=== PATIENT | male | born 1945 | race Caucasian/White ===

== ENCOUNTER 2021-03-17 08:28 | Day surgery (SDC) | payer MEDICARE, OTHER ==
[2021-03-17] MEDS ORDERED: Propofol 200 MG/20 ML SDV IV ONE (08:29)
[2021-03-17] MEDS ORDERED: Sodium Chloride 0.9% 1,000 ML IV SCH (08:45)
[2021-03-17] MEDS ORDERED: Sodium Chloride 0.9% 10 ML Syringe FLUSH PRN (08:45)
--- NOTE | 2021-03-17 09:42 | PCM.PN ---
- General Info Date of Service: 03/17/21 - Review of Systems Systems Review Comment:: 75 y/o male here for screening colonoscopy. He is medically stable to proceed. His recent history and physical is reviewed and no significant changes are noted. He does state that he has intermittent diarrhea. I have discussed the proposed colonoscopy with the patient. Risks such as but not limited to bleeding and GI injury reviewed. He agrees to proceed. - Patient Data Vitals - Most Recent: Last Vital Signs Temp 97.5 F 03/17/21 09:00 Pulse 77 03/17/21 09:00 Resp 18 03/17/21 09:00 BP 152/69 H 03/17/21 09:00 Pulse Ox 99 03/17/21 09:00 Weight - Most Recent: 121.109 kg Med Orders - Current: Current Medications Sodium Chloride (Normal Saline) 1,000 mls @ 50 mls/hr IV ASDIRECTED WIN Sodium Chloride (Sodium Chloride 0.9% 10 Ml Syringe) 10 ml FLUSH Q8HR PRN PRN Reason: keep vein open Sepsis Event Note - Focused Exam Vital Signs: Vital Signs Temp Pulse Resp BP Pulse Ox 03/17/21 09:00 97.5 F 77 18 152/69 H 99 - Problem List Review Problem List Initiated/Reviewed/Updated: Yes - My Orders Last 24 Hours: My Active Orders 03/16/21 16:04 Resuscitation Status Routine 03/17/21 Breakfast Nothing Per Oral Diet [DIET] 03/17/21 08:45 Blood Glucose Check, Bedside [RC] UPON Peripheral IV Care [RC] . DIRECTED Sodium Chloride 0.9% [Normal Saline] 1,000 ml IV ASDIRECTED Sodium Chloride 0.9% [Saline Flush] 10 ml FLUSH Q8HR PRN Peripheral IV Insertion Adult [OM.PC] Routine 03/17/21 09:00 Patient to Empty Bladder [RC] ASDIRECTED 03/17/21 09:45 Verify Patient Consent Obtain [RC] ASDIRECTED - Assessment Assessment:: Colon cancer screening - Plan Plan:: Colonoscopy
[2021-03-17] MEDS ORDERED: Midazolam 1 MG/ML 2 ML SDV ONE (09:49)
[2021-03-17] MEDS ORDERED: Propofol 200 MG/20 ML SDV ONE ×2 (09:49→10:26)
--- NOTE | 2021-03-17 10:52 | PCM.OPNOTE ---
- General Post-Op/Procedure Note Date of Surgery/Procedure: 03/17/21 Operative Procedure(s): Colonoscopy with Polypectomy Findings: Multiple colon polyps Pre Op Diagnosis: Colon cancer screening Post-Op Diagnosis: Colon polyps Anesthesia Technique: MAC Primary Surgeon: Mehul Beverly Pathology: Colon Polyps EBL in mLs: 0 Complications: None Condition: Good
[2021-03-17 14:56] VITALS: BP 131/58; PULSE 68
--- NOTE | 2021-03-17 15:29 | OR ---
DATE OF SURGERY: 03/17/2021 SURGEON: Mehul Beverly MD PREOPERATIVE DIAGNOSIS: Colon cancer screening. POSTOPERATIVE DIAGNOSIS: Colon polyps. OPERATION PERFORMED: Colonoscopy with polypectomy. INDICATIONS FOR SURGERY: This 75-year-old male is referred for screening colonoscopy. His last colon exam was approximately 10 years ago. FINDINGS: Multiple polyps are noted on today's exam. There is a 6 mm sessile polyp in the rectum 4 cm from the anal verge. There is also a cluster of 7 polyps in the ascending colon and cecum. These range in size from 5 to 10 mm and they are all sessile in configuration and soft. The remainder of the colon appears normal. DESCRIPTION OF PROCEDURE: The patient was taken to the operating room. He was given intravenous sedation and with him in the left lateral decubitus position, digital rectal exam was performed showing no rectal masses. The Olympus colonoscope was inserted into the rectum. Retroflexed examination of the rectal canal is performed. In the rectum, the above-described rectal polyp was identified. This was removed with a cautery snare and retrieved into a polyp trap. The scope was then carefully advanced under direct visualization through the entire length of the colon until the ascending colon and cecum were reached. In this area, a cluster of multiple polyps was identified. These are all removed with a cautery snare and retrieved into a polyp trap. They were in relatively close proximity in this region and so they were all submitted as a single specimen. The cecum is able to be cannulated and carefully examined. The ileocecal valve and appendiceal orifice are examined, and this area otherwise appears normal. The scope was then slowly withdrawn sequentially re- examining the colonic segments. One additional very small polyp in the mid transverse colon is destroyed with cautery. The examination is completed and with no sign of any bleeding or other complication, the scope was removed, and the patient was taken from the operating room in satisfactory condition. ESTIMATED BLOOD LOSS: Zero. COMPLICATIONS: None. PROGNOSIS: Good. /[id number]/MODL
== END 2021-03-17 12:30 | disposition home or self-care (01) ==
LOC: KA.SDS 08:28
PROVIDERS: ATTEND Surgery
DX: Z12.11 Encounter for screening for malignant neoplasm of colon (principal); D12.8 Benign neoplasm of rectum; D12.0 Benign neoplasm of cecum; I25.10 Atherosclerotic heart disease of native coronary artery without angina pectoris; I10 Essential (primary) hypertension; E78.5 Hyperlipidemia, unspecified; E11.9 Type 2 diabetes mellitus without complications; Z88.0 Allergy status to penicillin; Z88.8 Allergy status to other drugs, medicaments and biological substances; Z79.899 Other long term (current) drug therapy; Z79.82 Long term (current) use of aspirin; Z90.49 Acquired absence of other specified parts of digestive tract; Z98.890 Other specified postprocedural states; Z87.891 Personal history of nicotine dependence; Z79.4 Long term (current) use of insulin
CPT/HCPCS: 00812; 45385; J2250; J2704; 88305

== ENCOUNTER 2021-09-22 21:01 | Emergency (ER) | payer MEDICARE, OTHER, MEDICAID ==
[2021-09-22] MEDS ORDERED: Sodium Chloride 0.9% 10 ML Syringe FLUSH PRN (21:07)
--- NOTE | 2021-09-22 21:09 | EDM.PDOC ---
ED HPI GENERAL MEDICAL PROBLEM - General Chief Complaint: Chest Pain Stated Complaint: chest discomfort Time Seen by Provider: 09/22/21 21:06 Source of Information: Reports: Patient, Family History Limitations: Reports: No Limitations - History of Present Illness INITIAL COMMENTS - FREE TEXT/NARRATIVE: Avery, 75-year-old male, presents emergency department with his after experiencing some vague chest pressure symptoms at home. He states for the past 2 weeks he is noted increasing edema despite him using his medications which he then found out were likely as they were issued in 2019 prescription. He then presented to the [facility] at which time lab work and a short-term prescription was provided for oral furosemide and his mail order prescription was ordered which he received today. Tonight he speaks of edema not improving as he had hoped for and presented for evaluation. He denies any fever chills. He is not COVID-19 vaccinated. Maurice Denies shortness of breath or chest pain, states he had a sensation in his chest but it improved/resolved once they got in the car with no intervention and has not returned being completely resolved prior to his evaluation. He states he has had worsening edema as previously mentioned for the past 10 to 14 days. He had some diarrhea 3 days ago that he feels was always controlled but did linger with a loose stool this morning. Onset: Today, Gradual Duration: Day(s):, Week(s):, Resolved Prior to Arrival Location: Reports: Chest, Lower Extremity, Left, Lower Extremity, Right Bilateral Leg Pain Score (Numeric/FACES): 4 - Related Data Allergies Allergy/AdvReac Type Severity Reaction Status Date / Time Penicillins Allergy Hives Verified 03/02/21 13:57 rosuvastatin [From Crestor] Allergy Muscle Verified 03/02/21 13:57 Aches Home Meds: Home Meds Finasteride 5 mg PO BEDTIME 05/21/16 [History] Lisinopril 40 mg PO BEDTIME 05/21/16 [History] Terazosin HCl [Terazosin] 5 mg PO QAM 05/21/16 [History] metFORMIN HCl [Metformin HCl] 1,000 mg PO BIDMEALS 05/21/16 [History] Nitroglycerin [Nitrolingual Sun] 1 spray SL TID PRN 30 Days canister 05/22/16 [Rx] Aspirin [Adult Aspirin Regimen] 81 mg PO DAILY 03/02/21 [History] Diclofenac Sodium [Voltaren 1% Gel] 1 applic TOP BID PRN 03/02/21 [History] Furosemide 20 mg PO DAILY 03/02/21 [History] Insulin NPH Hum/Reg Insulin Hm [Novolin 70-30 Flexpen] 20 unit SQ BID 03/02/21 [History] Terazosin [Hytrin] 2 mg PO BEDTIME 03/02/21 [History] tiZANidine [Zanaflex] 4 mg PO BID 03/02/21 [History] Past Medical History HEENT History: Reports: Impaired Vision Cardiovascular History: Reports: CAD, High Cholesterol, Hypertension, SOB on Exertion Respiratory History: Reports: Sleep Apnea, Other (See Below) Other Respiratory History: CPAP at night Gastrointestinal History: Reports: Colon Polyp, Hemorrhoids Genitourinary History: Reports: BPH, Prostate Disorder Musculoskeletal History: Reports: Arthritis, Back Pain, Chronic, Osteoarthritis Neurological History: Reports: Neuropathy, Diabetic, Other (See Below) Other Neuro History: sciatica Psychiatric History: Reports: Depression Endocrine/Metabolic History: Reports: Diabetes, Type II, Obesity/BMI 30+ Oncologic (Cancer) History: Reports: Prostate Dermatologic History: Reports: Other (See Below) Other Dermatologic History: Purple discoloration to bilat legs. - Infectious Disease History Infectious Disease History: Reports: Chicken Pox, Measles, Mumps, Shingles - Past Surgical History HEENT Surgical History: Reports: Cataract Surgery Cardiovascular Surgical History: Reports: Coronary Artery Stent Respiratory Surgical History: Reports: Lung Biopsies GI Surgical History: Reports: Appendectomy, Cholecystectomy, Colonoscopy Male Surgical History: Reports: Prostate Biopsy Endocrine Surgical History: Reports: None Neurological Surgical History: Reports: None Musculoskeletal Surgical History: Reports: None Oncologic Surgical History: Reports: None Dermatological Surgical History: Reports: None Social & Family History - Family History Family Medical History: No Pertinent Family History Cardiac: Reports: Heart Failure Endocrine/Metabolic: Reports: Diabetes, Type I Oncologic: Reports: None - Caffeine Use Caffeine Use: Reports: Coffee ED ROS GENERAL - Review of Systems Review Of Systems: Comprehensive ROS is negative, except as noted in HPI. ED EXAM, GENERAL - Physical Exam Exam: See Below Free Text/Narrative:: Alert oriented in no acute distress. There is no cyanosis nor pallor. He is somewhat unkempt in his presentation with full facial hair present. Carmi moist mucous membranes. Neck is soft supple no JVD no carotid bruit and no rigidity noted. Thorax is clear mildly diminished bases with no wheezes or crackles noted. Cardiac is S1-S2 I do appreciate a soft grade 1 murmur best heard at the base. Abdomen is rotund soft bowel sounds are present no tenderness to palpation, no flank pain to percussion. He has significant +2 edema to the lower extremities with a ruborous presentation denying any pain. #1 Interpretation EKG Date: 09/22/21 Time: 21:04 Rhythm: NSR Rate (Beats/Min): 74 [place]: Normal P-Wave: Present QRS: RBBB ST-T: Normal QT: Normal Comparison: NA - No Prior EKG Course - Vital Signs Last Recorded V/S: Last Vital Signs Temp 97.1 F 09/22/21 21:05 Pulse 72 09/22/21 21:21 Resp 20 09/22/21 21:21 BP 170/67 H 09/22/21 21:21 Pulse Ox 94 L 09/22/21 21:21 - Orders/Labs/Meds Orders: Active Orders 24 hr Category Date Time Status Peripheral IV Care [RC] . DIRECTED Care 09/22/21 21:07 Active Chest 1V Frontal [CR] Stat Exams 09/22/21 21:06 Ordered Sodium Chloride 0.9% [Saline Flush] Med 09/22/21 21:07 Active 10 ml FLUSH Q8HR PRN Peripheral IV Insertion Adult [OM.PC] Stat Oth 09/22/21 21:07 Ordered EKG 12 Lead [EK] Stat Ther 09/22/21 21:06 Ordered Medication Orders Sodium Chloride (Sodium Chloride 0.9% 10 Ml Syringe) 10 ml FLUSH Q8HR PRN PRN Reason: keep vein open Last Admin: 09/22/21 22:26 Dose: 10 ml Documented by: KARLI Labs: Laboratory Tests 09/22/21 09/22/21 09/22/21 Range/Units 21:15 21:15 21:15 WBC 5.33 (5.00-10.00) 10^3/uL RBC 3.58 L (4.50-6.00) 10^6/uL Hgb 11.2 L (13.0-17.0) g/dL Hct 34.8 L (40.0-52.0) % MCV 97.2 H D (82.0-92.0) fL MCH 31.3 H (27.0-31.0) pg MCHC 32.2 (32.0-36.0) g/dL RDW 13.6 (11.5-14.5) % Plt Count 137 L (150-400) 10^3/uL MPV 10.5 H (7.4-10.4) fL Immature Gran % (Auto) 0.0 (0.0-5.0) % Neut % (Auto) 66.0 (50.0-70.0) % Lymph % (Auto) 22.5 (20.0-40.0) % [place] % (Auto) 9.6 H (2.0-8.0) % Eos % (Auto) 1.7 (1.0-3.0) % Baso % (Auto) 0.2 (0.0-1.0) % Neut # (Auto) 3.52 (2.50-7.00) 10^3/uL Lymph # (Auto) 1.20 (1.00-4.00) 10^3/uL [place] # (Auto) 0.51 (0.10-0.80) 10^3/uL Eos # (Auto) 0.09 L (0.10-0.30) 10^3/uL Baso # (Auto) 0.01 (0.00-0.10) 10^3/uL Immature Gran # (Auto) 0.00 (0.00-0.50) 10^3/uL D-Dimer, Quantitative 1160 H (<400) ng/mL Sodium 145 (136-145) mmol/L Potassium 4.2 (3.5-5.1) mmol/L Chloride 105 (98-107) mmol/L Carbon Dioxide 31.4 (21.0-32.0) mmol/L Anion Gap 12.8 (5-15) mmol/L BUN 26 H (7-18) mg/dL Creatinine 1.25 H (0.51-1.17) mg/dL Est Cr Clr Drug Dosing 52.69 mL/min Estimated GFR (MDRD) 56 mL/min Glucose 189 H (70-140) mg/dL Calcium 9.4 (8.7-10.3) mg/dL Total Bilirubin 0.3 (0.2-1.0) mg/dL AST 13 L (15-37) U/L ALT 51 (14-63) U/L Alkaline Phosphatase 99 (46-116) U/L Troponin I High Sens 10.800 (0-76.000) pg/mL C-Reactive Protein < 0.4 (0.0-0.9) mg/dL B-Natriuretic Peptide 204 H (0-100) pg/mL Total Protein 7.2 (6.4-8.2) g/dL Albumin 3.53 (3.40-5.00) g/dL SARS-CoV-2 RNA (BREEZY) (NEGATIVE) 09/22/21 Range/Units 21:15 WBC (5.00-10.00) 10^3/uL RBC (4.50-6.00) 10^6/uL Hgb (13.0-17.0) g/dL Hct (40.0-52.0) % MCV (82.0-92.0) fL MCH (27.0-31.0) pg MCHC (32.0-36.0) g/dL RDW (11.5-14.5) % Plt Count (150-400) 10^3/uL MPV (7.4-10.4) fL Immature Gran % (Auto) (0.0-5.0) % Neut % (Auto) (50.0-70.0) % Lymph % (Auto) (20.0-40.0) % [place] % (Auto) (2.0-8.0) % Eos % (Auto) (1.0-3.0) % Baso % (Auto) (0.0-1.0) % Neut # (Auto) (2.50-7.00) 10^3/uL Lymph # (Auto) (1.00-4.00) 10^3/uL [place] # (Auto) (0.10-0.80) 10^3/uL Eos # (Auto) (0.10-0.30) 10^3/uL Baso # (Auto) (0.00-0.10) 10^3/uL Immature Gran # (Auto) (0.00-0.50) 10^3/uL D-Dimer, Quantitative (<400) ng/mL Sodium (136-145) mmol/L Potassium (3.5-5.1) mmol/L Chloride (98-107) mmol/L Carbon Dioxide (21.0-32.0) mmol/L Anion Gap (5-15) mmol/L BUN (7-18) mg/dL Creatinine (0.51-1.17) mg/dL Est Cr Clr Drug Dosing mL/min Estimated GFR (MDRD) mL/min Glucose (70-140) mg/dL Calcium (8.7-10.3) mg/dL Total Bilirubin (0.2-1.0) mg/dL AST (15-37) U/L ALT (14-63) U/L Alkaline Phosphatase (46-116) U/L Troponin I High Sens (0-76.000) pg/mL C-Reactive Protein (0.0-0.9) mg/dL B-Natriuretic Peptide (0-100) pg/mL Total Protein (6.4-8.2) g/dL Albumin (3.40-5.00) g/dL SARS-CoV-2 RNA (BREEZY) Negative (NEGATIVE) Meds: Medications Generic Name Dose Route Start Last Admin Trade Name Freq PRN Reason Stop Dose Admin Sodium Chloride 10 ml 09/22/21 21:07 09/22/21 22:26 Sodium Chloride 0.9% 10 Ml Syringe FLUSH 10 ml Q8HR PRN Administration keep vein open Discontinued Medications Generic Name Dose Route Start Last Admin Trade Name Freq PRN Reason Stop Dose Admin Furosemide 20 mg 09/22/21 22:10 09/22/21 22:26 Furosemide 40 Mg/4 Ml Vial IVPUSH 09/22/21 22:11 20 mg NOW ONE Administration Departure - Departure Time of Disposition: 23:10 Disposition: Home, Self-Care 01 Condition: Good Clinical Impression: Edema, Chronic renal failure, stage 2 (mild), Elevated d-dimer - Discharge Information *PRESCRIPTION DRUG MONITORING PROGRAM REVIEWED*: Not Applicable *COPY OF PRESCRIPTION DRUG MONITORING REPORT IN PATIENT TREASURE: Not Applicable Instructions: Food Basics for Chronic Kidney Disease, Edema, Peripheral Edema Forms: ED Department Discharge Additional Instructions: You were given an additional dose of Lasix/furosemide here tonight. You need to take all your medications as directed on a daily basis. Limit your salt intake as that will promote swelling. You can discuss the findings of the chest x-ray and lab work with Dr. Kumar when you see her at Tuesday's appointment. In the event you cannot make it to your appointment Tuesday please call the clinic ahead of time to cancel/ re-schedule. Sepsis Event Note (ED) - Focused Exam Vital Signs: Vital Signs Temp Pulse Resp BP Pulse Ox 09/22/21 21:21 72 20 170/67 H 94 L 09/22/21 21:05 97.1 F 75 20 173/71 H 98 - Problem List & Annotations (1) Edema SNOMED Code(s): 496661339, 319138080 Code(s): R60.9 - EDEMA, UNSPECIFIED Status: Acute Qualifiers: Edema type: unspecified Qualified Code(s): R60.9 - Edema, unspecified (2) Chronic renal failure, stage 2 (mild) SNOMED Code(s): 712705464 Code(s): N18.2 - CHRONIC KIDNEY DISEASE, STAGE 2 (MILD) Status: Chronic Priority: Medium (3) Elevated d-dimer SNOMED Code(s): 991352727 Code(s): R79.89 - OTHER SPECIFIED ABNORMAL FINDINGS OF BLOOD CHEMISTRY Status: Acute Priority: Medium - Problem List Review Problem List Initiated/Reviewed/Updated: Yes - My Orders Last 24 Hours: My Active Orders 09/22/21 21:06 Chest 1V Frontal [CR] Stat EKG 12 Lead [EK] Stat 09/22/21 21:07 Peripheral IV Care [RC] . DIRECTED Sodium Chloride 0.9% [Saline Flush] 10 ml FLUSH Q8HR PRN Peripheral IV Insertion Adult [OM.PC] Stat - Assessment/Plan Last 24 Hours: My Active Orders 09/22/21 21:06 Chest 1V Frontal [CR] Stat EKG 12 Lead [EK] Stat 09/22/21 21:07 Peripheral IV Care [RC] . DIRECTED Sodium Chloride 0.9% [Saline Flush] 10 ml FLUSH Q8HR PRN Peripheral IV Insertion Adult [OM.PC] Stat Plan: You were given an additional dose of Lasix/furosemide here tonight. You need to take all your medications as directed on a daily basis. Limit your salt intake as that will promote swelling. You can discuss the findings of the chest x-ray and lab work with Dr. Kumar when you see her at Tuesday's appointment. In the event you cannot make it to your appointment Tuesday please call the clinic ahead of time to cancel/ re-schedule.
[2021-09-22 21:46] LABS: ANION GAP 12.8 mmol/L (5-15); CHLORIDE,CL 105 mmol/L (98-107); SODIUM,NA 145 mmol/L (136-145)
[2021-09-22] MEDS ORDERED: Furosemide 40 MG/4 ML VIAL IVPUSH ONE (22:10)
[2021-09-23 02:09] VITALS: BP 169/62; PULSE 73
--- NOTE | 2021-09-23 07:43 | CR ---
[id number] RAD/RAD Chest Portable EXAM: PORTABLE CHEST INDICATION: EDEMA/CHF PRIOR CHEST PRESSURE COMPARISON: February 26, 2021 and May 21, 2016. DISCUSSION: Overexposure somewhat limits the study. Mild elevation right hemidiaphragm. An ovoid right mid to upper peripheral hemithorax parenchymal opacity is most with scarring. Mild cardiomegaly without evidence of edema. No effusions. IMPRESSION: 1. Unchanged pleural and parenchymal scarring in the right lung. No acute infiltrates. Tanner Smith MD 09/23/21 0741 Thank you for allowing us to participate in the care of your patient.
== END 2021-09-22 23:20 | disposition home or self-care (01) ==
LOC: KA.ED 21:01
DX: R79.1 Abnormal coagulation profile (principal); R60.0 Localized edema; I12.9 Hypertensive chronic kidney disease with stage 1 through stage 4 chronic kidney disease, or unspecified chronic kidney disease; E11.22 Type 2 diabetes mellitus with diabetic chronic kidney disease; N18.2 Chronic kidney disease, stage 2 (mild); I25.10 Atherosclerotic heart disease of native coronary artery without angina pectoris; M19.90 Unspecified osteoarthritis, unspecified site; E11.40 Type 2 diabetes mellitus with diabetic neuropathy, unspecified; I45.10 Unspecified right bundle-branch block; E66.9 Obesity, unspecified; Z68.39 Body mass index [BMI] 39.0-39.9, adult; Z88.0 Allergy status to penicillin; Z88.8 Allergy status to other drugs, medicaments and biological substances; Z79.4 Long term (current) use of insulin; Z79.82 Long term (current) use of aspirin; Z79.899 Other long term (current) drug therapy; Z20.822 Contact with and (suspected) exposure to COVID-19
CPT/HCPCS: 36415; 71045; 80053; 83880; 84484; 85025; 85379; 86140; 93005; 93010; 96374; 99284; 99285-25; J1940; U0002

== ENCOUNTER 2022-08-27 10:20 | Emergency (ER) | payer MEDICARE, OTHER, MEDICAID ==
[2022-08-27 10:42] VITALS: BP 164/69; PULSE 82
== END 2022-08-27 12:08 | disposition home or self-care (01) ==
LOC: KA.ED 10:20
DX: S00.03XA Contusion of scalp, initial encounter (principal); I25.10 Atherosclerotic heart disease of native coronary artery without angina pectoris; I10 Essential (primary) hypertension; E11.9 Type 2 diabetes mellitus without complications; E66.9 Obesity, unspecified; Z68.37 Body mass index [BMI] 37.0-37.9, adult; Z90.49 Acquired absence of other specified parts of digestive tract; Z88.0 Allergy status to penicillin; Z88.8 Allergy status to other drugs, medicaments and biological substances; Z79.899 Other long term (current) drug therapy; W01.198A Fall on same level from slipping, tripping and stumbling with subsequent striking against other object, initial encounter
CPT/HCPCS: 70450; 99283

== ENCOUNTER 2022-09-24 14:49 | Inpatient (IN) | payer MEDICARE, OTHER, MEDICAID ==
[2022-09-24] MEDS ORDERED: Sodium Chloride 0.9% 10 ML Syringe FLUSH PRN (15:15)
[2022-09-24] MEDS ORDERED: Ketorolac 30 MG/ML SDV IVPUSH ONE (15:33)
[2022-09-24] MEDS ORDERED: LORazepam 2 MG/ML SDV IVPUSH ONE (15:33)
[2022-09-24] MEDS ORDERED: Acetaminophen 325 MG Tab PO PRN (16:16)
[2022-09-24] MEDS ORDERED: LORazepam 2 MG/ML SDV IV PRN (16:16)
[2022-09-24] MEDS ORDERED: Nitroglycerin 0.4 MG Tab.SL SL PRN (19:13)
[2022-09-24] MEDS ORDERED: Loperamide 2 MG Cap PO PRN (19:13)
[2022-09-24] MEDS ORDERED: Diclofenac Sodium 1% Gel 100 GM Tube TOP PRN (19:13)
[2022-09-24] MEDS ORDERED: ALPHA LIPOIC ACID 300 MG PO SCH (21:00)
[2022-09-24] MEDS: Terazosin 5 MG Cap PO SCH (21:23)
[2022-09-24] MEDS: Finasteride 5 MG Tab PO SCH (21:24)
[2022-09-24] MEDS: Lisinopril 20 MG Tab PO SCH (21:24)
[2022-09-24] MEDS: Magnesium Oxide 500 MG Tab PO SCH (21:24)
[2022-09-24] MEDS: Furosemide 20 MG Tab PO SCH (21:24)
[2022-09-24] MEDS: Terazosin 1 MG Cap PO SCH (21:24)
[2022-09-24] MEDS: Insulin Glargine,Hum.Rec.Anlog 100 UNIT/ML 3 ML Pen SUBCUT SCH (21:28)
[2022-09-24] MEDS: Enoxaparin 40 MG/0.4 ML Syringe SUBCUT SCH (21:31)
[2022-09-24] MEDS: Ketorolac 30 MG/ML SDV IVPUSH PRN (23:24)
[2022-09-25 07:49] LABS: ANION GAP 10.8 mmol/L (5-15)
[2022-09-25] MEDS: Insulin Regular, Human 100 Units/ML 10 ML Vial SUBCUT SCH ×2 (07:58→18:08)
[2022-09-25] MEDS: Insulin Glargine,Hum.Rec.Anlog 100 UNIT/ML 3 ML Pen SUBCUT SCH (08:08)
[2022-09-25] MEDS: Magnesium Oxide 500 MG Tab PO SCH ×2 (08:08→20:01)
[2022-09-25] MEDS: Multivitamins with Minerals/Iron/Folic Acid/Lycopene Tab PO SCH (08:08)
[2022-09-25] MEDS: Ketorolac 30 MG/ML SDV IVPUSH PRN ×2 (09:02→19:54)
[2022-09-25] MEDS: Enoxaparin 40 MG/0.4 ML Syringe SUBCUT SCH (18:30)
[2022-09-25] MEDS: Acetaminophen/HYDROcodone 325-5 MG Tab PO PRN (18:30)
[2022-09-25] MEDS: Finasteride 5 MG Tab PO SCH (20:01)
[2022-09-25] MEDS: Terazosin 5 MG Cap PO SCH (20:01)
[2022-09-25] MEDS: Lisinopril 20 MG Tab PO SCH (20:01)
[2022-09-25] MEDS: Furosemide 20 MG Tab PO SCH (20:01)
[2022-09-25] MEDS: Terazosin 1 MG Cap PO SCH (20:02)
[2022-09-26] MEDS: Ketorolac 30 MG/ML SDV IVPUSH PRN (01:44)
[2022-09-26 07:51] LABS: ANION GAP 10.9 mmol/L (5-15)
[2022-09-26] MEDS: Insulin Regular, Human 100 Units/ML 10 ML Vial SUBCUT SCH ×2 (08:00→18:45)
[2022-09-26] MEDS: Multivitamins with Minerals/Iron/Folic Acid/Lycopene Tab PO SCH (09:25)
[2022-09-26] MEDS: Magnesium Oxide 500 MG Tab PO SCH ×2 (09:25→22:15)
[2022-09-26] MEDS: Insulin Glargine,Hum.Rec.Anlog 100 UNIT/ML 3 ML Pen SUBCUT SCH (09:35)
[2022-09-26] MEDS: Celecoxib 100 MG Cap PO PRN ×2 (12:57→22:16)
[2022-09-26] MEDS: Acetaminophen/HYDROcodone 325-5 MG Tab PO PRN (18:34)
[2022-09-26] MEDS: Terazosin 5 MG Cap PO SCH (22:15)
[2022-09-26] MEDS: Enoxaparin 40 MG/0.4 ML Syringe SUBCUT SCH (22:15)
[2022-09-26] MEDS: Lisinopril 20 MG Tab PO SCH (22:16)
[2022-09-26] MEDS: Terazosin 1 MG Cap PO SCH (22:16)
[2022-09-26] MEDS: Finasteride 5 MG Tab PO SCH (22:16)
[2022-09-26] MEDS: Furosemide 20 MG Tab PO SCH (22:16)
[2022-09-27] MEDS: diphenhydrAMINE 25 MG Cap PO PRN ×2 (02:44→22:20)
[2022-09-27] MEDS: Acetaminophen/HYDROcodone 325-5 MG Tab PO PRN (06:04)
[2022-09-27] MEDS: Insulin Regular, Human 100 Units/ML 10 ML Vial SUBCUT SCH ×2 (08:09→18:00)
[2022-09-27] MEDS: Multivitamins with Minerals/Iron/Folic Acid/Lycopene Tab PO SCH (08:09)
[2022-09-27] MEDS: Magnesium Oxide 500 MG Tab PO SCH ×2 (08:09→20:13)
[2022-09-27] MEDS: Insulin Glargine,Hum.Rec.Anlog 100 UNIT/ML 3 ML Pen SUBCUT SCH (08:10)
[2022-09-27] MEDS ORDERED: Cyclobenzaprine 10 MG Tab PO PRN (08:56)
[2022-09-27] MEDS: Acetaminophen/oxyCODONE 325-5 MG Tab PO PRN ×2 (09:56→20:31)
[2022-09-27 11:07] LABS: ANION GAP 9.7 mmol/L (5-15)
[2022-09-27] MEDS: Enoxaparin 40 MG/0.4 ML Syringe SUBCUT SCH (18:43)
[2022-09-27] MEDS: Finasteride 5 MG Tab PO SCH (20:13)
[2022-09-27] MEDS: Furosemide 20 MG Tab PO SCH (20:13)
[2022-09-27] MEDS: Terazosin 1 MG Cap PO SCH (20:13)
[2022-09-27] MEDS: Lisinopril 20 MG Tab PO SCH (20:13)
[2022-09-27] MEDS: Terazosin 5 MG Cap PO SCH (20:13)
[2022-09-28 06:49] VITALS: BP 158/59; PULSE 63
[2022-09-28 07:34] LABS: ANION GAP 10.1 mmol/L (5-15)
[2022-09-28] MEDS: Insulin Regular, Human 100 Units/ML 10 ML Vial SUBCUT SCH (08:10)
[2022-09-28] MEDS: Insulin Glargine,Hum.Rec.Anlog 100 UNIT/ML 3 ML Pen SUBCUT SCH (08:11)
[2022-09-28] MEDS: Multivitamins with Minerals/Iron/Folic Acid/Lycopene Tab PO SCH (08:11)
[2022-09-28] MEDS: Magnesium Oxide 500 MG Tab PO SCH (08:11)
== END 2022-09-28 10:53 | DRG 948 ==
LOC: KA.ED 14:49 → KA.MS 16:15
PROVIDERS: ADMIT Physician Assistant Medical; ATTEND Internal Medicine
DX: R53.1 Weakness (principal); R53.81 Other malaise; G89.29 Other chronic pain; N40.0 Benign prostatic hyperplasia without lower urinary tract symptoms; E11.9 Type 2 diabetes mellitus without complications; I10 Essential (primary) hypertension; E83.42 Hypomagnesemia; E11.40 Type 2 diabetes mellitus with diabetic neuropathy, unspecified; Z20.822 Contact with and (suspected) exposure to COVID-19; H54.7 Unspecified visual loss; E78.00 Pure hypercholesterolemia, unspecified; F32.A Depression, unspecified; E11.42 Type 2 diabetes mellitus with diabetic polyneuropathy; G47.30 Sleep apnea, unspecified; I25.10 Atherosclerotic heart disease of native coronary artery without angina pectoris; Z88.8 Allergy status to other drugs, medicaments and biological substances; Z88.0 Allergy status to penicillin; Z79.82 Long term (current) use of aspirin; Z79.4 Long term (current) use of insulin; Z79.899 Other long term (current) drug therapy
CPT/HCPCS: 36415; 80048; 80053; 82947; 85025; 96374; 96375; 97110-GP; 97161-GP; 99285-25; A9270-GY; J1650; J1885; J2060; U0002